=== PATIENT | male | born 1990 | race Caucasian/White ===

== ENCOUNTER 2021-08-09 22:26 | Emergency (ER) | payer SELFPAY ==
[~2021-08-09] VITALS: Ht 170.2 cm; Wt 95.3 kg
[2021-08-09 23:05] VITALS: BP 145/64
--- NOTE | 2021-08-10 00:18 | NUR ---
Dr. Subramanian at bedside to exam patient.
--- NOTE | 2021-08-10 01:25 | NUR ---
d/c with VSS. d/c education given. opportunity to ask questions given and answered. norx given.
== END 2021-08-10 01:25 | disposition home or self-care (01) ==
LOC: MED 22:26
DX: G44.209 Tension-type headache, unspecified, not intractable (principal); H11.31 Conjunctival hemorrhage, right eye; F12.90 Cannabis use, unspecified, uncomplicated
CPT/HCPCS: 99281

== ENCOUNTER 2021-12-31 20:55 | Emergency (ER) | payer MEDICAID ==
[~2021-12-31] VITALS: Ht 172.7 cm; Wt 90.7 kg
[2021-12-31 21:28] VITALS: BP 143/70
--- NOTE | 2021-12-31 21:39 | NUR ---
TO LOBBY FOLLOWING TRIAGE
[2021-12-31 23:16] LABS: BASOPHILS # (AUTO) 0.1 K/uL (0.00-0.22); BASOPHILS % (AUTO) 0.6 % (0.0-2.0); EOSINOPHILS % (AUTO) 0.3 % (0.0-4.0); HEMATOCRIT 45.3 % (36-52); HEMOGLOBIN 15.8 g/dL (12.0-18.0); LYMPHOCYTES # (AUTO) 2.5 K/uL (2.0-11.5); MEAN CORPUSCULAR HEMOGLOBIN 31 pg (27-31); MEAN CORPUSCULAR HGB CONC 35 g/dL (33-37); MEAN CORPUSCULAR VOLUME 87.8 fL (80-94); MONOCYTES # (AUTO) 1.1 K/uL (0.8-1.0); MONOCYTES % (AUTO) 7.7 % (1.7-9.3); NEUTROPHILS # (AUTO) 10.3 K/uL (1.8-7.7); NEUTROPHILS % (AUTO) 73.4 % (42.2-75.2); PLATELET COUNT (AUTO) 340 K/uL (140-450); RED BLOOD CELL COUNT(AUTO) 5.16 MIL/uL (4.20-6.10); RED CELL DISTRIBUTION WIDTH 12.6 % (11.6-13.7); WHITE BLOOD COUNT (AUTO) 14.1 K/uL (4.8-10.8)
[2021-12-31 23:35] LABS: ALBUMIN 3.9 g/dL (3.4-5.0); ANION GAP 14.6 (8-16); CARBON DIOXIDE 26.5 mmol/L (21-32); CREATININE 0.9 mg/dL (0.6-1.3); POTASSIUM 4.1 mmol/L (3.5-5.1); TOTAL BILIRUBIN 0.3 mg/dL (0.0-1.0)
[2022-01-01] MEDS ORDERED: NAPR-54 PO (01:43)
[2022-01-01] MEDS ORDERED: HYDR-5191 PO (01:43)
[2022-01-01 01:50] VITALS: BP 143/70
--- NOTE | 2022-01-01 01:50 | NUR ---
Patient discharged with v/s stable. Written and verbal after care instructions given and explained. Patient alert, oriented and verbalized understanding of instructions. Ambulatory with steady gait. All questions addressed prior to discharge. ID band removed. Patient advised to follow up with PMD. Rx of NAPROSYN AND HYDROCODONE given. Patient educated on indication of medication including possible reaction and side effects. Opportunity to ask questions provided and answered.
== END 2022-01-01 01:50 | disposition home or self-care (01) ==
LOC: MED 20:55
DX: N45.2 Orchitis (principal)
CPT/HCPCS: 36415; 76870; 80053; 83605; 85025; 99284; Q0092